=== PATIENT | male | born 1945 | race Caucasian/White ===

== ENCOUNTER 2022-09-08 07:49 | Outpatient (CLI) | payer MEDICARE, SELFPAY | END 2022-09-08 07:50 | disposition home or self-care (01) | PROVIDERS: PCP Physician Assistant Medical; Visit Provider Physician Assistant Medical | DX: Z00.00 Encounter for general adult medical examination without abnormal findings (principal); I10 Essential (primary) hypertension; E78.5 Hyperlipidemia, unspecified; R97.20 Elevated prostate specific antigen [PSA] | CPT/HCPCS: 80053; 80061; 84153 ==

== ENCOUNTER 2022-09-12 07:05 | Outpatient (CLI) | payer MEDICARE, SELFPAY ==
--- NOTE | 2022-09-12 07:15 | CRLHL7_ITS ---
For Patients: As a result of the Century Cures Act, medical imaging exams and procedure reports are released immediately into your electronic medical record. You may view this report before your referring provider. If you have questions, please contact your health care provider. CLINICAL HISTORY: Left testicular swelling TECHNIQUE: Roca scale imaging was performed of the scrotum. In addition color Doppler and spectral Doppler analysis was performed of the testes. FINDINGS: The testes demonstrate normal arterial and venous blood flow on color Doppler and spectral Doppler analysis. The testes have uniform echogenicity with no evidence of a suspicious mass or area of inflammation. The right testis measures 4.8 x 2.6 x 2.9 cm in size and the left testis measures 5 x 2.6 x 2.7 cm. 1.1 centimeter left epididymal cyst the epididymis otherwise appears normal bilaterally. Large left hydrocele. Small right hydrocele. IMPRESSION: 1. No intratesticular mass. Left epididymal cyst. 2. Large left hydrocele. Small right hydrocele. Dictated by Shayy Booker MD @ 09/12/2022 8:41:23 AM (Electronically Signed)
== END 2022-09-12 07:06 | disposition home or self-care (01) ==
PROVIDERS: PCP Physician Assistant Medical; Visit Provider Physician Assistant Medical
DX: N50.89 Other specified disorders of the male genital organs (principal); N43.3 Hydrocele, unspecified
CPT/HCPCS: 76870; 93976

== ENCOUNTER 2022-11-09 07:05 | Outpatient (CLI) | payer MEDICARE, SELFPAY ==
--- NOTE | 2022-11-09 07:15 | MR_ITS ---
[address] [address] Phone:?[phone] Fax:?[phone] Referring Physician Information: Primo Lucas M.D. [address] [id number] [facility] [address] Phone:?[phone] Fax:?[phone] Patient:Steve Hernandez D.O.B:?1945 Sex:?Male Phone:? [facility] MRN:?[id number] Exam Date:?11/09/2022 EXAM: 1.5 PATSY MRI EXAM OF THE PROSTATE WITH AND WITHOUT IV CONTRAST WITH DYNACAD IMAGING CLINICAL INFORMATION: Elevated PSA, 8.42 ng/mL. No prior biopsy. COMPARISON: None. TECHNICAL INFORMATION: Examination was performed on a 1.5 Patsy magnet. High- resolution T1 axial, T2 axial, T2 FSE sagittal and T2 FSE coronal images were obtained through the prostate gland and seminal vesicles. Diffusion images were obtained in the axial plane. 15 mL of Dotarem were injected with dynamic enhanced images of the prostate gland in the axial plane. T1 fat saturation sagittal and coronal images were obtained postinjection. 3-D rendering with interpretation and reporting of MR imaging with postprocessing under concurrent supervision; requiring imaging postprocessing on an independent [employer] workstation. IV Contrast Discarded:?0 mL Dotarem INTERPRETATION: Prostate gland measures 44 x 33 x 31 mm, 25 mL prostate. Transitional and central zones: Stromal hyperplasia without focal suspicious (PI RADS 3 or higher score) transitional zone lesion. Peripheral zones: Lesion 1: Location: Posterior lateral left peripheral zone, mid gland to base level. Description: 17 x 16 x 12 mm, partially circumscribed hypointense T2 lesion with marked hypointense ADC signal, bright DWI signal and dynamic enhancement, axial images 19 through 23. PI-RADS: 4 Pelvis: Prostate capsule, neurovascular bundles and seminal vesicles are unremarkable. No pelvic adenopathy or osseous lesion. CONCLUSION: 1. 17 x 16 x 12 mm PI RADS 4 lesion posterior lateral left peripheral zone, mid gland to base level. PI-RADS Scoring System: Score / Criteria ACR PI-RADS Peripheral Zone T2WI 1 = Uniformly hyperintense signal intensity (normal) 2 = Linear or wedge-shaped hypointensity, or diffuse mild hypointensity, usually indistinct margin 3 = Heterogenous signal intensity or non-circumscribed, rounded, moderate hypointensity. Includes others that do not qualify as 2,4,or 5 4 = Circumscribed, homogeneous moderate hypointense focus/mass confined to prostate and < 1.5 cm in greatest dimension 5 = Same as 4 but >=?1.5 cm in greatest dimension or definite extraprostatic extension/invasive behavior ACR PI-RADS Transition Zone T2WI 1 = Normal appearing TZ (rare) or a round, completely encapsulated nodule (typical nodule) 2 = A mostly encapsulated nodule OR a homogeneous circumscribed nodule without encapsulation. (atypical nodule) OR a homogenous midly hypointense area between nodules 3 = Heterogeneous signal intensity with obscured margins. Includes others that do not qualify as 2,4,or 5 4 = Lenticular or non-circumscribed, homogenous, moderately hypointense, and < 1.5 cm in greatest dimension 5 = Same as 4 but >=1.5 cm in greatest dimension or definite extraprostatic extension/invasive behavior ACR PI-RADS Assessment of DWI Peripheral Zone (PZ) or Transition Zone (TZ) 1 = No abnormality (i.e., normal) on ADC and high b-value DWI 2 = Linear/wedge shaped hypotense on ADC and/or linear wedge shaped hyperintense on high b-value DWI 3 = Focal (discrete and different from the background) hypointense on ADC and/or focal hyperintense on high b-value DWI, may be markedly hypointense on ADC or markedly hyperintense on high b-value DWI, but not both 4 = Focal markedly hypontense on ADC and markedly hyperintense on high b-value DWI; < 1.5 cm in greatest dimension 5 = Same as 4 but >=1.5 cm in greatest dimension or definite extraprostatic extension/invasive behavior ACR PI-RADS Assessment for DCE Negative (-) = No early or contemporaneous enhancement, or; diffuse multifocal enhancement NOT corresponding to a focal finding on T2W and/or DWI or focal enhancement corresponding to a lesion demonstrating features of BPH on T2WI (including features of extruded BPH in the PZ) Positive (+) = Focal, and; earlier than or contemporaneous with enhancement of adjacent normal prostatic tissues, and; corresponds to a suspicious finding on T2WI and/or DWI PI-RADS Assessment Categories: Score 1 = very low; clinically significant cancer is highly unlikely to be present Score 2 = low; clinically significant cancer is unlikely to be present Score 3 = intermediate; the presence of clinically significant cancer is equivocal Score 4 = high; clinically significant cancer is likely to be present Score 5 = very high; clinically significant cancer is highly likely to be present [facility] Electronically signed on 11/09/2022 1:05:00 PM by Joce Whitney M.D.
== END 2022-11-09 07:06 | disposition home or self-care (01) ==
LOC: MRI 07:05
PROVIDERS: PCP Physician Assistant Medical; Visit Provider Urology
DX: R97.20 Elevated prostate specific antigen [PSA] (principal)
CPT/HCPCS: 72197; A9575

== ENCOUNTER 2022-12-05 12:34 | Outpatient (CLI) | payer MEDICARE, SELFPAY | END 2022-12-05 12:35 | disposition home or self-care (01) | PROVIDERS: PCP Physician Assistant Medical; Visit Provider Physician Assistant Medical | DX: I48.91 Unspecified atrial fibrillation (principal) | CPT/HCPCS: 84443 ==

== ENCOUNTER 2022-12-30 10:49 | Outpatient (CLI) | payer MEDICARE, SELFPAY | END 2022-12-30 10:50 | disposition home or self-care (01) | LOC: RAD 10:51 | PROVIDERS: PCP Physician Assistant Medical; Visit Provider Physician Assistant Medical | DX: I48.91 Unspecified atrial fibrillation (principal); I51.7 Cardiomegaly; I35.1 Nonrheumatic aortic (valve) insufficiency; I34.0 Nonrheumatic mitral (valve) insufficiency; I07.1 Rheumatic tricuspid insufficiency | CPT/HCPCS: 93306 ==

== ENCOUNTER 2023-04-17 06:08 | Day surgery (SDC) | payer MEDICARE, SELFPAY ==
[2023-04-17] VITALS (13 sets, daily range): BP systolic 91–129; BP diastolic 64–97; PULSE 54–96; RESP 13–18; TEMP 36.2–36.5; O2SAT 95–97; BMI 29.1
[2023-04-17] MEDS: LACTATED RINGERS 1000 ML 1,000 ML 100 ML IV (06:15)
[2023-04-17] MEDS: SODIUM CHLORIDE 0.9 % (FLUSH) 10 ML SYRINGE IVF (06:57)
--- NOTE | 2023-04-17 07:22 | SUR.PREOP ---
noting bright red rash on left side of abdomen prior to shaving also in his abdomen crease a moist red area
--- NOTE | 2023-04-17 07:28 | W.PM.H&PU ---
History & Physical Update History & Physical Update H&P Reviewed and patient assessed: No changes noted
--- NOTE | 2023-04-17 07:29 | P.GSOP_ITS ---
Operative Note Pre-op diagnosis: 1. Left symptomatic hydrocele. 2. Symptomatic left inguinal hernia. Post-op diagnosis: 1. Moderately sized left hydrocele. 2. Small indirect Left inguinal hernia and weak inguinal floor. Type of Procedure: 1. Open left inguinal hernia repair with mesh. 2. Open Left hydrocelectomy. Indications: 78-year-old male was seen in clinic for evaluation of a left hydrocele. Patient states that for the past several months prior to his presentation he noticed swelling on the left side of his testicle. He noticed that the size of his left hemiscrotum would fluctuate and get smaller and larger at times. He initially denied pain in the left groin but after his clinic evaluation started to experience increased pain in the groin. This was worse with strenuous activity. Patient had a scrotal ultrasound in August of 2022 that showed normal bilateral testes. There was 1 cm left epididymal cyst. There was also a large left hydrocele. On clinical exam patient had a moderate amount of left hemiscrotal swelling consistent with hydrocele. I was not able to palpate the testis on the left side. With the patient standing up and doing Valsalva there was a small hernia palpated over the medial inguinal canal. Given patient's clinical history and worsening left groin pain as well as his clinical exam, a left hydrocelectomy and inguinal hernia repair with mesh was recommended. The procedure was discussed in detail. The risks associated procedure including infection, bleeding, injury to inguinal nerves, persistent drainage from his scrotum, and possible need for additional procedures were all discussed with the patient, and he agreed to proceed. Procedure Description: After discussing the risks and benefits of the procedure, the patient signed informed consent.? The operative site was marked and the patient was brought to the operating room and placed on the operating table in supine position.? Care was taken to pad the patient's pressure points.?? The patient was then intubated by anesthesia.?? The operative site was then prepped and draped in the usual sterile fashion.? A time-out was then performed. Surgical site was prepped and draped in sterile fashion. Site of the incision was marked with a marking pen and local anesthetic was injected. An oblique incision was made just above and medial to the left inguinal ligament. Subcutaneous tissue was dissected to external obliques. Superficial subcutaneous vascular branches were clamped, divided and tied with 3-0 Vicryl ties. Small incision was made through the external oblique aponeurosis with scalpel. I then used Metzenbaum scissors to dissect under external obliques and extend my incision. Mosquito clamps were placed on the edges of external oblique exposing the inguinal floor. The left Ilioinguinal nerve was identified and was going through the plain of dissection. The nerve was divided proximally and distally a nd a 3 cm segment of it was excised. This was not sent to pathology. I then identified the spermatic cord and the hernia sac. I bluntly dissected subcutaneous tissues in order to place Becca drain around the cord structures. Cremasteric fibers were peeled off and dissected off the hernia sac and cord structures. the tissues in the left hemiscrotum were then dissected bluntly and with cautery around the left testicle and hydrocele. The left hydrocele was then delivered out of the incision and examined closely. The hydrocele was entered with Metzenbaum scissors and straw-colored clear fluid was suctioned out. The testicle was identified and epididymis was noted to have a small cyst. The hydrocele sac was then excised with cautery circumferentially. The layer of the sac adherent to the testicle was left intact and cautery was used to score the surface of the sac. Hemostasis was achieved with cautery. The testicle was then placed into the hemiscrotum. I then proceeded with dissecting the hernia sac from the spermatic cord. The hernia sac was identified and grasped with Kendra clamps. There was a small indirect inguinal hernia with no intra-abdominal structures incarcerated through this hernia defect. The hernia sac was dissected off the spermatic cord with cautery and bluntly. The left inguinal floor was weak. The indirect hernia sac was incised and examined from the inside. No intraabdominal organs were incarcerated in the hernia sac. A stitch using 2-0 Vicryl was placed near the base of the hernia sac through the sac and the hernia sac tied off. Hernia sac was then excised and not sent to pathology. This was then pushed into preperitoneal space through the internal ring. Surgical field was examined for bleeding and hemostasis was achieved with cautery and Vicryl ties. A Bard mesh onlay was also used for hernia repair. The mesh onlay was sutured in place with interrupted 0-0 Neurolon sutures to the conjoint tendon medially and shelving edge laterally, pubic tubercle inferiorly. The mesh was incised in the center to allow space for the spermatic cord to go through the center of the mesh. Simple interrupted sutures were placed using 0-0 Neurolon at the base of internal inguinal ring making it only large enough to fit a tip of one finger through. Spermatic cord was placed back into scrotum. [place] drain was removed. External oblique aponeurosis was closed with a running 3-0 Vicryl. Local anesthetic was injected into subcutaneous tissues. Celena's fascia and subcutaneous tissue was re-approximated with interrupted Vicryl stitches. Skin incision was closed with 4-0 Monocryl subcuticular stitch. Steri strips and sterile dressing were applied over incision. A jockstrap was placed over the patient's scrotum and gauze was placed for pressure on the left hemiscrotum. All counts were correct at the end of the case. Patient tolerated this procedure well and was transferred to PACU in stable condition. Findings: Small indirect inguinal hernia and weak inguinal floor. Moderately sized left hydrocele. Anesthesia: GETA Surgeon: Guera Hagan MD Estimated blood loss (mL): 5 Condition: stable Disposition: PACU Date of procedure: 04/17/23
[2023-04-17] MEDS: CEFAZOLIN 2 GM INJ IVP (07:40)
[2023-04-17] MEDS: BUPIVACAINE 0.25% 30 ML 10 ML INJECTION (07:50)
--- NOTE | 2023-04-17 09:32 | W.ANESCHARGE ---
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
[2023-04-17] MEDS: HYDROCODONE-ACETAMIN 5-325 MG 1 TAB PO (10:18)
--- NOTE | 2023-04-17 10:30 | W.ANESCHARGE ---
Anesthesia Charges Start Date/Time Anesthesia Start Date: 04/17/23 Anesthesia Start Time: 07:29 Stop Date/Time Anesthesia Stop Date: 04/17/23 Anesthesia Stop Time: 09:31 Summary Extremes of Age - Over 70 or under 1: MDA
== END 2023-04-17 11:25 | disposition home or self-care (01) ==
PROVIDERS: PCP Physician Assistant Medical; Visit Provider Surgery
PROC: (CPT 49505; principal; 2023-04-17 07:30)
PROC: (CPT 49505; 2023-04-17 07:30)
DX: K40.90 Unilateral inguinal hernia, without obstruction or gangrene, not specified as recurrent (principal); N43.2 Other hydrocele; N50.3 Cyst of epididymis
CPT/HCPCS: 49505; 55040; 00830; 99100; A9270; C1781; J0330; J0665; J0690; J1100; J2371; J2405; J2704; J2710; J3010; J7120

== ENCOUNTER 2023-05-25 07:02 | Outpatient (CLI) | payer MEDICARE, SELFPAY ==
--- NOTE | 2023-05-25 07:15 | CRLHL7_ITS ---
For Patients: As a result of the Century Cures Act, medical imaging exams and procedure reports are released immediately into your electronic medical record. You may view this report before your referring provider. If you have questions, please contact your health care provider. INDICATION: LEFT TESTICULAR SWELLING, FOLLOW UP KNOWN HYDROCELE COMPARISON: 09/12/2022 TECHNIQUE: Roca scale imaging was performed of the scrotum. In addition color Doppler and spectral Doppler analysis was performed of the testes. FINDINGS: Right testicle measures 4.6 x 2.1 x 2.7 cm. Left testicle measures 3.8 x 2.6 x 3.1 cm. Left epididymal head cyst measures 1.5 x 0.9 x 1.2 cm. Normal right epididymis. No intratesticular mass. No torsion. There is a large echogenic collection of fluid within the left hemiscrotum measuring at least 8 cm. IMPRESSION: Large left hydrocele, now containing echogenic material likely representing blood products. Drainage recommended. Stable left epididymal head cyst. Dictated by Jayden Zavala MD @ 05/25/2023 11:30:58 AM (Electronically Signed)
== END 2023-05-25 07:03 | disposition home or self-care (01) ==
LOC: US 07:05
PROVIDERS: PCP Physician Assistant Medical; Visit Provider Urology
DX: N50.89 Other specified disorders of the male genital organs (principal); Z98.890 Other specified postprocedural states; N43.2 Other hydrocele; L72.0 Epidermal cyst
CPT/HCPCS: 76870; 93976

== ENCOUNTER 2023-06-20 06:25 | Outpatient (CLI) | payer MEDICARE, SELFPAY ==
--- OUTSIDE RECORDS SUMMARY | 2023-06-20 06:27 | XMS_ITS | Continuity of Care Document ---
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 Plan of Treatment Reminders Order Date Submit Date Provider Last Modified By Organization Details Last Modified Time Details Appointments COREAS CLASS 2023 06:00P M SIMS_Provide r Not available Not available Not available HOS[facility] 180 2023 11:15A M Primo Lucas MD Not available Not available Not available HOSPIT AL 180 2023 11:15A M Louie Butt MD Not available Not available Not available LAB 30 VOIDIN G TRIAL/ FILL&P ULL 2023 08:30A M CLINICAL_SCH EDULE Not available Not available Not available POST OP 20 2023 11:00A M Mary Osborne PA-C Not available Not available Not available VED_CL ASS_NO N_BILL ABLE 2023 06:00P M VED_EDUCATIO N Not available Not available Not available ESTABL ISHED 20 2023 08:40A M LIO López Not available Not available Not available LAB BLOOD DRAW 2023 09:50A M [facility] Not available Not available Not available ESTABL ISHED 10 2023 08:40A M Primo Lucas MD Not available Not available Not available Lab None record ed. Referral None record ed. Procedures None record ed. Surgeries prosta tectom y with bilate ral pelvic lymph node dissec tion, robot assist ed laparo scopic (SURG) 2022 023 mallram Not available 05/17/2023 09:36:00 Imaging None record ed. Medication Orders None record ed. Patient TargetsNo targets recorded. Patient InstructionsNo instructions recorded. Reason for Referral None Reported. Results Created Date Observation Date Name Description Value Unit Range Abnormal Flag LastModifiedBy Organization Detail LastModifiedTime 04/27/20 23 04/26/2023 US, prost ate No observ ation record ed. [email or web address] Not Available 05/09/2023 16:48:14 05/25/19 24 05/25/2023 US, duple x, scrot um, compl ete No observ ation record ed. [facility] [address] [place], [address], 05/26/2023 09:44:19 Result Notes None recorded. Problems Name Status Onset Date Resolution Date Notes Provider Name and Address Organization Details Recorded Time Essential hypertension Active 02/08/20 23 Camilla major [facility] 02/07/2023 17:06:43 Prostate specific antigen above reference range Active 04/26/20 23 Camilla major [facility] 04/26/2023 13:05:55 Problem Notes None recorded. Procedures Surgical History Date Name Laterality Status Provider Name and Address Organization Details Recorded Time 3 Prostate Biopsy Procedure completed Primo Lucas MD [address] [place] [address],[address] [place] [address], [id number], [facility] 04/26/2023 13:55:17 3 URONAV completed Primo Lucas MD [address] [place] [address],[address], [place], [address], [facility] 04/26/2023 13:55:10 3 Rocephin/Ceftr iaxone completed Ria major [facility] 04/26/2023 12:49:06 3 Blood Draw/PHOTO TECHNOLOGIST/PSA RESULTS completed Ria major [facility] 04/26/2023 12:49:09 3 Prostate Biopsy Procedure cancelled Camilla major [facility] 02/07/2023 17:06:20 3 URONAV cancelled Camilla major [facility] 02/07/2023 17:06:20 3 Rocephin/Ceftr iaxone cancelled Dennis major [facility] 02/08/2023 13:41:54 3 Blood Draw/PHOTO TECHNOLOGIST/PSA RESULTS cancelled Dennis major [facility] 02/08/2023 13:41:38 Imaging Results None recorded. Procedure Notes None recorded. Medical Equipment None Reported. Allergies No known drug allergies Medications Name Sig Start Date Stop Date Status Note LastModified by Organization Details LastModified Time metoprolol succinate ER 50 mg tablet,exte nded release 24 hr active Not Available Not Available Not Available hydrocodone 5 mg-acetamin ophen 325 mg tablet active Not Available Not Available No t Available amlodipine 5 mg tablet active Not Available Not Available Not Available ceftriaxone 1 gram solution for injection Take 1 g by injection route. 05/09 completed Not Available Not Available Not Available amlodipine 10 mg tablet 05/09 completed Not Available Not Available Not Available hydrochloro thiazide 25 mg tablet active Not Available Not Available No t Available metoprolol succinate ER 25 mg tablet,exte nded release 24 hr 05/09 completed Not Available Not Available Not Available levofloxaci n 500 mg tablet Take 1 tablet(s) EVERY 24 HOURS by oral route begin the day before prostate biopsy. take one pill the day before biopsy, one pill prior to the biopsy on the day of and one pill the day after the biopsy 05/09 completed Not Available Not Available Not Available losartan 100 mg tablet active Not Available Not Available Not Available Xarelto 20 mg tablet active Not Available Not Available No t Available QuickVue At-Home COVID-19 Test kit TEST DIRECTED TODAY 10/28 completed Not Available Not Available Not Available Vitals Date Recorded Body height Body mass index (BMI) Body weight Provider Name and Address Organization Details Last Updated DateTime 05/09/2023 182.88 cm 28.5 kg/m2 28396.4 g Camilla major [facility] 05/09/2023 16:25:50 Social History Question Answer Notes LastModified by Organizat ion Details LastModified Time Tobacco Smoking Status Never Smoker Camilla major [facility] 10/28/2022 12:21:11 What Is Your Level Of Alcohol Consumption? Moderate [email or web address] Information not available 10/28/2022 What Is Your Level Of Caffeine Consumption? Occasional [email or web address] Information not available 10/28/2022 What Was The Date Of Your Most Recent Tobacco Screening? 05/09/2023 [email or web address] Information not available 05/09/2023 Have You Ever Been Counseled For Unhealthy Alcohol Use? No [email or web address] Information not available 02/07/2023 Do You Use Any Illicit Or Recreational Drugs? No [email or web address] Information not available 10/28/2022 Has Tobacco Cessation Counseling Been Provided? No [email or web address] Information not available 10/28/2022 Do You Or Have You Ever Used Any Other Forms Of Tobacco Or Nicotine? No [email or web address] Information not available 10/28/2022 How Many Days In The Past Year Have You Consumed 5 Or More Drinks? 0 Information no t available 02/07/2023 Sex: Male Functional Status None recorded. Mental Status None recorded. Family History Nothing Reported. Medical History Condition Response Diabetes N Sexually Transmitted Infection N Other N Bleeding Disorder N High Blood Pressure Y Kidney Stones N Cancer N Depression N Lung Disease N High Cholesterol N GERD/Acid Reflux N Heart Disease N Immunizations Vaccine Type Date Status Provider Name and Address Organization Details Recorded Time influenza, high-dose, quadrivalent 04/09/2021 filemon major [facility] 10/28/2022 12:17:30 Influenza vaccine, quadrivalent, adjuvanted 04/05/2022 filemon major [facility] 10/28/2022 12:17:30 COVID-19, mRNA, LNP-S, PF, 30 mcg/0.3 mL dose 07/04/2020 filemon major [facility] 10/28/2022 12:17:30 COVID-19, mRNA, LNP-S, PF, 30 mcg/0.3 mL dose 07/25/2020 filemon major [facility] 10/28/2022 12:17:30 COVID-19, mRNA, LNP-S, PF, 30 mcg/0.3 mL dose 04/22/2021 completed Camilla major, [facility] 10/28/2022 12:17:30 COVID-19, mRNA, LNP-S, bivalent, PF, 30 mcg/0.3 mL dose 04/05/2022 [facility] 12:17:30 pneumococcal polysaccharide PPV23 06/09/2010 completed Camilla major, [facility] 10/28/2022 12:17:30 Tdap 05/29/2009 [facility]2022 12:17:30 Pneumococcal conjugate PCV 13 04/03/2015 [facility]20[facility] 12:17:30 zoster live 01/30/2013 [facility]/28/2022 12:17:30 Influenza, high dose seasonal 06/15/2018 [facility]2022 12:17:30 Influenza, high dose seasonal 02/17/2016 [facility]/2022 12:17:30 Influenza, high dose seasonal 03/03/2017 [facility]2022 12:17:30 Influenza, high dose seasonal 03/23/2020 [facility]22 12:17:30 Influenza, high dose seasonal 04/12/2019 [facility] 12:17:30 Influenza, seasonal, injectable, preservative free 06/09/2010 [facility] 12:17:30 Influenza, seasonal, injectable, preservative free 01/30/2013 [facility]2022 12:17:31 Influenza, seasonal, injectable, preservative free 02/09/2011 completed Camilla major [facility] 10/28/2022 12:17:31 Influenza, seasonal, injectable, preservative free 04/30/2014 completed Camilla Kayleyfrantz major [facility] 10/28/2022 12:17:31 Td (adult), 2 Lf tetanus toxoid, preservative free, adsorbed 10/14/2021 completed Camilla major [facility] 10/28/2022 12:17:31 influenza, injectable, quadrivalent, preservative free 03/13/2015 completed Camilla major [facility] 10/28/2022 12:17:31 Past Encounters Encounter ID Performer Location Encounter Start Date Encounter Closed Date Diagnosis/Indication [id number] Ria Arrieta [address] [address] 04/26/2023 12:46:11 04/26/2023 13:19:00 Prostate specific antigen above reference range [id number] Primo Lucas MD [address] [address] 04/26/2023 12:47:33 04/26/2023 14:15:21 Prostate specific antigen above reference range [id number] Primo Lucas MD [address] [address] 05/09/2023 16:10:34 05/10/2023 08:21:24 Carcinoma of prostate Health Concerns Section Related Observation LastModified by Organization Detai ls LastModified Time None Recorded Concern Status LastModified by Organization Details LastModified Time None Recorded Payers Encounter Date Sequence Insurance Name Policy Number Policy Verdugo Covered Member ID Verdugo Member ID Guarantor Name 05/09/2023 1 [employer] - DOS ON OR AFTER 19 (MEDICARE REPLACEMENT/ ADVANTAGE - PPO) [id number] 1 Benedict Hernandez [id number] Benedict Hernandez Notes Date Note Type Note Provider Name and Address Organization Details Recorded Time 05/09/2023 text/html HPI Notes: New diagnosis prostate cancer grade group 3 disease in the left side of the prostate with MRI showing confined disease and PI-RADS 3 positive grade group 4 on biopsy. PSA of 8. Primo Lucas MD [address] [place] [address], [place], [address], [facility] 05/10/2023 06:28:24
--- OUTSIDE RECORDS SUMMARY | 2023-06-20 06:27 | XMS_ITS | Data Portability ---
Author Name Unknown Address [address] [place] [address] Phone [phone] Organization [facility], [facility] Address [address] [place] [address] Care Team Providers Care Teaching Artist Name Role Phone BENJAMÍN SHERMAN Primary Care Provider Assessment Encounter Date Assessment Date Assessment LastModified by Organization Details LastModified Time 04/26/2023 04/26/2023 The patient tolerated the procedure well. We discussed that he can expect to have blood coating the stool for a few days, pink or reddish urine which may be normal, and rust colored ejaculate for up to one month. We discussed important warning signs such as fevers >100.4 which may be indicative of sepsis, worsening blood in the urine with clots and urinary retention, or worsening blood per rectum. In each other these circumstances he should contact the office immediately or go to the Emergency Department. He will be contacted with the results of his biopsy. If he does not receive these results within 5-7 business days he should contact our office. [email or web address] Not available 04/26/2023 12:55:25 Plan of Treatment Reminders Order Date Submit [...] available LAB BLOOD DRAW 2023 09:50A M [facility] Not available Not available Not available ESTABL ISHED 10 2023 08:40A M Primo Lucas MD Not available Not available Not available Lab biopsy , prosta te 2022 023 [facility], [address], [address], [place], [address], 04/29/2023 16:01:06 Referral None record ed. Procedures None record ed. Surgeries prosta tectom y with bilate ral pelvic lymph node dissec tion, robot assist ed laparo scopic (SURG) 2022 023 mallram Not available 05/17/2023 09:36:00 Imaging MRI, prosta te, w/wo contra st - elevat ed psa, prosta te mri with dynbac ad. 2022 023 [facility], [address] [place], [address], 11/09/2022 14:05:35 Medication Orders ceftri axone 1 gram soluti on for inject ion 2022 023 [email or web address] [facility] [place], [address], 05/09/2023 16:25:57 Patient TargetsNo targets recorded. Patient InstructionsNo instructions recorded. Reason for Referral None Reported. Results Created Date Observation Date Name Description Value Unit Range Abnormal Flag LastModifiedBy Organization Detail LastModifiedTime 11/10/19 23 11/09/2022 MRI, prost ate, w/wo contr ast No observ ation record ed. [email or web address] Primo De Los Santos MD [address] [place], [address], 11/09/2022 18:37:28 04/27/20 23 04/26/2023 US, prost ate No observ ation record ed. [email or web address] Not Available 05/09/2023 16:48:14 05/25/19 24 05/25/2023 US, duple x, scrot um, compl ete No observ ation record ed. [facility] [address] [place], [address], 05/26/2023 09:44:19 Result Notes None recorded. Problems Name Status Onset Date Resolution Date Notes Provider Name and Address Organization Details Recorded Time Essential hypertension Active 02/08/20 23 Camilla major [facility] 02/07/2023 17:06:43 Prostate specific antigen above reference range Active 04/26/20 23 Camilla major [facility] 04/26/2023 13:05:55 Problem Notes None recorded. Procedures Surgical History Date Name Laterality Status Provider Name and Address Organization Details Recorded Time 3 Prostate Biopsy Procedure completed Primo Lucas MD [address] [place] [address],[address], [address], [facility] 04/26/2023 13:55:17 3 URONAV completed Primo Lucas MD [address] [place] [address],[address], [address], [facility] 04/26/2023 13:55:10 3 Rocephin/Ceftr iaxone completed Ria major [facility] 04/26/2023 12:49:06 3 Blood Draw/C.O.D. CLERK/PSA RESULTS completed Ria major [facility] 04/26/2023 12:49:09 3 Prostate Biopsy Procedure cancelled Camilla major [facility] 02/07/2023 17:06:20 3 URONAV cancelled Camilla major [facility] 02/07/2023 17:06:20 3 Rocephin/Ceftr iaxone cancelled Dennis major [facility] 02/08/2023 13:41:54 3 Blood Draw/C.O.D. CLERK/PSA RESULTS cancelled Dennis major [facility] 02/08/2023 13:41:38 Imaging Results Imaging Date Name Status LastModified by Organiz ation Details LastModified Time 11/09/2022 MRI, prostate, w/wo contrast completed [email or web address] Primo De Los Santos MD [address] [place], [address], 11/09/2022 18:37:28 04/26/2023 US, prostate completed [email or web address] Information not available 05/09/2023 16:48:14 05/25/2023 US, duplex, scrotum, complete completed [facility] [address] [place], [address], 05/26/2023 09:44:19 Procedure Notes None recorded. Medical Equipment None [...] one pill the day after the biopsy 12/19 /2023 completed Not Available Not Available Not Available [...] and Address Organization Details Last Updated DateTime 10/28/2022 182.88 cm 28.5 kg/m2 54912.4 g Camilla major [facility] 10/28/2022 12:17:26 Date Recorded Body height Body mass index (BMI) Body weight Provider Name and Address Organization Details Last Updated DateTime 04/26/2023 182.88 cm 28.5 kg/m2 27753.4 g Camilla major [facility] 04/26/2023 13:05:44 Date Recorded Body height Body mass index (BMI) Body weight Provider Name and Address Organization Details Last Updated DateTime 05/09/2023 182.88 cm 28.5 kg/m2 02131.4 g Camilla major [facility] 05/09/2023 16:25:50 Social History Question Answer Notes LastModified by Organizat ion Details LastModified Time Tobacco Smoking Status Never Smoker Camilla major [facility] 10/28/2022 12:21:11 What Is Your Level Of Alcohol Consumption? Moderate [email or web address] Information not available 10/28/2022 What Is Your Level Of Caffeine Consumption? Occasional [email or web address] Information not available 10/28/2022 What Was The Date Of Your Most Recent Tobacco Screening? 05/09/2023 [email or web address] Information not available 05/09/2023 Have You Ever Been Counseled For Unhealthy Alcohol Use? No Information not available 02/07/2023 Do You Use Any Illicit Or Recreational Drugs? No [email or web address] Information not available 10/28/2022 Has Tobacco Cessation Counseling Been Provided? No [email or web address] Information not available 10/28/2022 Do You Or Have You Ever Used Any Other Forms Of Tobacco Or Nicotine? No [email or web address] Information not available 10/28/2022 How Many Days In The Past Year Have You Consumed 5 Or More Drinks? 0 [email or web address] Information no t available 02/07/2023 Sex: Male Functional Status None recorded. Mental Status None recorded. Family History Nothing Reported. Medical History Condition Response Other N High Blood Pressure Y Kidney Stones N Lung Disease N Depression N GERD/Acid Reflux N Diabetes N Sexually Transmitted Infection N Bleeding Disorder N Cancer N High Cholesterol N Heart Disease N Immunizations Vaccine Type Date Status Provider Name and Address Organization Details Recorded Time influenza, high-dose, quadrivalent 04/09/2021 completed Camilla major [facility] 10/28/2022 12:17:30 Influenza vaccine, quadrivalent, adjuvanted 04/05/2022 completed Camilla major [facility] 10/28/2022 12:17:30 COVID-19, mRNA, LNP-S, PF, 30 mcg/0.3 mL dose 07/04/2020 completed Camilla major [facility] 10/28/2022 12:17:30 COVID-19, mRNA, LNP-S, PF, 30 mcg/0.3 mL dose 07/25/2020 completed Camilla major [facility] 10/28/2022 12:17:30 COVID-19, mRNA, LNP-S, PF, 30 mcg/0.3 mL dose 04/22/2021 completed Camilla major [facility] 10/28/2022 12:17:30 COVID-19, mRNA, LNP-S, bivalent, PF, 30 mcg/0.3 mL dose 04/05/2022 completed Camilla major [facility] 10/28/2022 12:17:30 pneumococcal polysaccharide PPV23 06/09/2010 completed Camilla major [facility] 10/28/2022 12:17:30 Tdap 05/29/2009 completed Camilla major [facility] 10/28/2022 12:17:30 Pneumococcal conjugate PCV 13 04/03/2015 completed Camilla major [facility] 10/28/2022 12:17:30 zoster live 01/30/2013 completed Camilla major [facility] 10/28/2022 12:17:30 Influenza, high dose seasonal 06/15/2018 completed Camilla major [facility] 10/28/2022 12:17:30 Influenza, high dose seasonal 02/17/2016 completed Camilla major [facility] 10/28/2022 12:17:30 Influenza, high dose seasonal [facility]/03/2017 [facility] 12:17:30 Influenza, high dose seasonal 03/23/2020 [facility] 12:17:30 Influenza, high dose seasonal 04/12/2019 [facility] 12:17:30 Influenza, seasonal, injectable, preservative free 06/09/2010 [facility] 12:17:30 Influenza, seasonal, injectable, preservative free 01/30/2013 [facility]2022 12:17:31 Influenza, seasonal, injectable, preservative free 02/09/2011 [facility] 12:17:31 Influenza, seasonal, injectable, preservative free 04/30/2014 [facility] 12:17:31 Td (adult), 2 Lf tetanus toxoid, preservative free, adsorbed 10/14/2021 [facility] 12:17:31 influenza, injectable, quadrivalent, preservative free 03/13/2015 [facility] 12:17:31 Past Encounters Encounter ID Performer Location Encounter Start Date Encounter Closed Date Diagnosis/Indication [id number] MD Sol [facility] [address] [place] [id number] 10/28/2022 11:32:15 10/31/2022 08:17:55 Hydrocele of testis Prostate specific antigen above reference range Left inguinal hernia [id number] [facility] [address] [place] [phone] 04/26/2023 12:46:11 04/26/2023 13:19:00 Prostate specific antigen above reference range [id number] Primo Lucas MD [facility] [address] [place] [address],[address] [address] 04/26/2023 12:47:33 04/26/2023 14:15:21 Prostate specific antigen above reference range [id number] Primo Lucas MD [facility] [address] [place] [address],[address] [address] 05/09/2023 16:10:34 05/10/2023 08:21:24 Carcinoma of prostate Health Concerns Section Related Observation LastModified by Organization Detai ls LastModified Time None Recorded Concern Status LastModified by Organization Details LastModified Time None Recorded Advance Directives Directive None Recorded Payers Encounter Date Sequence Insurance Name Policy Number Policy Verdugo Covered Member ID Verdugo Member ID Guarantor Name 05/09/2023 1 [employer] - DOS ON OR AFTER 19 (MEDICARE REPLACEMENT/A DVANTAGE - PPO) [id number] 1 Benedict Page Betzold [id number] Benedict Page Betzold 04/26/2023 1 [employer] - DOS ON OR AFTER 19 (MEDICARE REPLACEMENT/A DVANTAGE - PPO) [id number] Benedict Page Betzold [id number] Benedict Page Betzold 04/26/2023 1 [employer] - DOS ON OR AFTER 19 (MEDICARE REPLACEMENT/A DVANTAGE - PPO) [id number] 1 Benedict Page Betzold [id number] Benedict Page Betzold 10/28/2022 1 [employer] - INDIVIDUAL AND FAMILY (HMO) [id number] 1 Benedict Page Betzold [id number] Benedict Page Betzold Notes Date Note Type Note Provider Name and Address Organization Details Recorded Time 10/28/2022 text/html HPI Notes: 77-year-old gentleman who comes to the office today for rising PSA now up to 8. Prior PSA testings were 5 and less than 3 and has increased over the last several years. He reports no major voiding complaints or pain. No history of bleeding or infection. Also reports a long history of left testicular hydrocele. Not bothersome. Has not grown or changed in size. Primo Lucas MD [address] [place] [address],[address], [address], [facility] 10/29/2022 10:27:29 04/26/2023 text/html HPI Notes: returns to clinic f/u pirads 4 lesion prostate elevated psa 8 Primo Lucas MD [address] [facility] [address], [place], [address], [facility] 04/26/2023 13:55:36 05/09/2023 text/html HPI Notes: New diagnosis prostate cancer grade group 3 disease in the left side of the prostate with MRI showing confined disease and PI-RADS 3 positive grade group 4 on biopsy. PSA of 8. Primo Lucas MD [address] [facility] [address], [place], [address], [facility] 05/10/2023 06:28:24
--- OUTSIDE RECORDS SUMMARY | 2023-06-20 06:27 | XMS_ITS | Continuity of Care Document ---
Author Name Unknown Address [address] [place] [id number] Phone [phone] Organization [facility], [facility] Address [address] [place] [address] Care Team Providers Care [place]id[place] Worker Name Role Phone BENJAMÍN SHERMAN Primary Care Provider [phone] Assessment Encounter Date Assessment Date Assessment LastModified [...] business days he should contact our office. [email or web address] Not available 04/26/2023 12:55:25 Plan of Treatment [...] LAB 30 VOIDIN G TRIAL/ FILL&P ULL 02/26/ 2024 08:30A M CLINICAL_SCH EDULE Not available Not available Not available POST OP 20 2023 11:00A M Mary Osborne PA-C Not available Not available Not available VED_CL ASS_NO N_BILL ABLE 2023 06:00P M VED_EDUCATIO N Not available Not available Not available ESTABL ISHED 20 2023 08:40A M LIO López Not available Not available Not available LAB BLOOD DRAW 2023 09:50A M LAB-GRASSY BUTTE Not available Not available Not available ESTABL ISHED 10 2023 08:40A M Primo Lucas MD Not available Not available Not available Lab biopsy , prosta te 2022 023 [facility] Urology - Section Lab, [address] [facility], [place] [address], [place], [address], 04/29/2023 16:01:06 Referral None record ed. Procedures None record ed. Surgeries None record ed. Imaging None record ed. Medication Orders None record ed. Patient TargetsNo targets recorded. Patient InstructionsNo instructions recorded. Reason for Referral None Reported. Results Created Date Observation Date Name Description Value Unit Range Abnormal Flag LastModifiedBy Organization Detail LastModifiedTime 04/27/20 23 04/26/2023 US, prost ate No observ ation record ed. [email or web address] Not Available 05/09/2023 16:48:14 05/25/19 24 05/25/2023 US, duple x, scrot um, compl ete No observ ation record ed. [facility]iology [address] [place], [address], 05/26/2023 09:44:19 Result Notes None recorded. Problems Name Status Onset Date Resolution Date Notes Provider Name and Address Organization Details Recorded Time Essential hypertension Active 02/08/20 23 Camilla major [facility] 02/07/2023 17:06:43 Prostate specific antigen above reference range Active 04/26/20 23 Camilla major [facility] 04/26/2023 13:05:55 Problem Notes None recorded. Procedures Surgical History Date Name Laterality Status Provider Name and Address Organization Details Recorded Time 3 Prostate Biopsy Procedure completed Primo Lucas MD [address] [facility],[address], [place], [address], [facility] 04/26/2023 13:55:17 3 URONAV completed Primo Lucas MD [address] [facility],[address], [place], [address], [facility] 04/26/2023 13:55:10 3 Rocephin/Ceftr iaxone completed Ria Arrietakay major [facility] 04/26/2023 12:49:06 3 Blood Draw/CANDY PACKER/PSA RESULTS [facility] 04/26/2023 12:49:09 3 Prostate Biopsy Procedure cancelled Camillaimelda major [facility] 02/07/2023 17:06:20 3 URONAV cancelled Camillaimelda major [facility] 02/07/2023 17:06:20 3 Rocephin/Ceftr iaxone cancelled Dennis Lund [facility] 02/08/2023 13:41:54 3 Blood Draw/CANDY PACKER/PSA RESULTS cancelled Dennis Lund [facility] 02/08/2023 13:41:38 Imaging Results None recorded. [...] Updated DateTime 04/26/2023 182.88 cm 28.5 kg/m2 15620.4 g Camilla major [facility] 04/26/2023 13:05:44 Social History Question Answer Notes LastModified by Organizat ion Details LastModified Time Tobacco Smoking Status Never Smoker Camilla major [facility] 10/28/2022 12:21:11 What Is Your Level Of Alcohol Consumption? Moderate [email or web address] Information not available 10/28/2022 What Is Your Level Of Caffeine Consumption? Occasional [email or web address] Information not available 10/28/2022 What Was The Date Of Your Most Recent Tobacco Screening? 05/09/2023 Information not available 05/09/2023 Have You Ever Been Counseled For Unhealthy Alcohol Use? No [email or web address] Information not available 02/07/2023 Do You Use Any Illicit Or Recreational Drugs? No [email or web address] Information not available 10/28/2022 Has Tobacco Cessation Counseling Been Provided? No Information not available 10/28/2022 Do You Or Have You Ever Used Any Other Forms Of Tobacco Or Nicotine? No [email or web address] Information not available 10/28/2022 How Many Days In The Past Year Have You Consumed 5 Or More Drinks? 0 [email or web address] Information no t available 02/07/2023 Sex: Male Functional Status None recorded. Mental Status None recorded. Family History Nothing Reported. Medical History Condition Response Diabetes N Sexually Transmitted Infection N Bleeding Disorder N Other N High Blood Pressure Y Kidney Stones N Cancer N Depression N Lung Disease N High Cholesterol N GERD/Acid Reflux N Heart Disease N Immunizations Vaccine Type Date Status Provider Name and Address Organization Details Recorded Time influenza, high-dose, quadrivalent 04/09/2021 completed Camilla major [facility] 10/28/2022 12:17:30 Influenza vaccine, quadrivalent, adjuvanted 04/05/2022 [facility]/28[facility]2022 12:17:30 COVID-19, mRNA, LNP-S, PF, 30 mcg/0.3 mL dose 07/04/2020 completed Camilla major [facility] 10/28/2022 12:17:30 COVID-19, mRNA, LNP-S, PF, 30 mcg/0.3 mL dose 07/25/2020 completed Camilla major [facility] 10/28/2022 12:17:30 COVID-19, mRNA, LNP-S, PF, 30 mcg/0.3 mL dose 04/22/2021 completed Camilla major [facility] 10/28/2022 12:17:30 COVID-19, mRNA, LNP-S, bivalent, PF, 30 mcg/0.3 mL dose 04/05/2022 completed Camilla major [facility] 10/28/2022 12:17:30 pneumococcal polysaccharide PPV23 06/09/2010 [facility] 10/28/2022 12:17:30 Tdap 05/29/2009 [facility] 10/28/2022 12:17:30 Pneumococcal conjugate PCV 13 04/03/2015 [facility] 10/28/2022 12:17:30 zoster live 01/30/2013 [facility] 10/28/2022 12:17:30 Influenza, high dose seasonal 06/15/2018 [facility] 10/28/2022 12:17:30 Influenza, high dose seasonal 02/17/2016 [facility] 10/28/2022 12:17:30 Influenza, high dose seasonal 03/03/2017 completed Camilla major [facility] 10/28/2022 12:17:30 Influenza, high dose seasonal 03/23/2020 [facility]/28/2022 12:17:30 Influenza, high dose seasonal 04/12/2019 [facility]/28/2022 12:17:30 Influenza, seasonal, injectable, preservative free 06/09/2010 [facility] 10/28/2022 12:17:30 Influenza, seasonal, injectable, preservative free 01/30/2013 completed Camilla major [facility] 10/28/2022 12:17:31 Influenza, seasonal, injectable, preservative free 02/09/2011 completed Camilla major [facility] 10/28/2022 12:17:31 Influenza, seasonal, injectable, preservative free 04/30/2014 completed Camilla major [facility] 10/28/2022 12:17:31 Td (adult), 2 Lf tetanus toxoid, preservative free, adsorbed 10/14/2021 completed Camilla major [facility] 10/28/2022 12:17:31 influenza, injectable, quadrivalent, preservative free 03/13/2015 [facility]/28/2022 12:17:31 Past Encounters Encounter ID Performer Location Encounter Start Date Encounter Closed Date Diagnosis/Indication [id number] Ria Arrieta [address] [address] 04/26/2023 12:46:11 04/26/2023 13:19:00 Prostate specific antigen above reference range [id number] Primo Lucas MD [facility] ry [address] [place] [address] 04/26/2023 12:47:33 04/26/2023 14:15:21 Prostate specific antigen above reference range Health Concerns Section Related Observation LastModified by Organization Detai ls LastModified Time None Recorded Concern Status LastModified by Organization Details LastModified Time None Recorded Payers Encounter Date Sequence Insurance Name Policy Number Policy Verdugo Covered Member ID Verdugo Member ID Guarantor Name 04/26/2023 1 [employer] - DOS ON OR AFTER 19 (MEDICARE REPLACEMENT/ ADVANTAGE - PPO) [id number] 1 Benedict Hernandez [id number] Benedict Hernandez Notes Date Note Type Note Provider Name and Address Organization Details Recorded Time 04/26/2023 text/html HPI Notes: returns to clinic f/u pirads 4 lesion prostate elevated psa 8 Primo Lucas MD [address] [place] [address],[address], [address], [facility] 04/26/2023 13:55:36
--- OUTSIDE RECORDS SUMMARY | 2023-06-20 06:27 | XMS_ITS | Clinical Summary ---
Author Name Unknown Organization [facility] Address [place], [place] [address] Care Team Providers Care Newspaper Reporter Name Role Phone Niko Coyne MD Primary Care Provider [phone] Allergies Active Allergy Reactions Criticality Noted Date Comments Atorvastatin Myalgia 11/11/2020 Medications Medication Sig Dispensed Refills Start Date End Date Status clobetasol cream 0.05% (TEMOVATE) 0.05 % cream 0 10/06/2020 Active hydroCHLOROthiazide (HCTZ) 25 mg tablet Daily 0 10/06/2020 Activ e losartan (COZAAR) 100 mg tablet Take 100 mg by mouth once daily. 0 01/13/2023 Active Xarelto 20 mg tablet Take 20 mg by mouth once daily with a meal. 0 12/07/2022 Active amLODIPine (NORVASC) 5 mg tabletIndications:Esse ntial hypertension Take 1 Tablet (5 mg) by mouth once daily. 90 Tablet 1 01/18/2023 Active metoprolol succinate (TOPROL XL) 50 mg sustained-release tabletIndications:Pers istent atrial fibrillation (HC) Take 1 Tablet (50 mg) by mouth once daily. 90 Tablet 1 03/07/2023 Active Active Problems Problem Noted Date Diagnosed Date Rising PSA level 06/01/2016 Immunizations Name Administration Dates Next Due COVID-19 vaccine (ShepHertzBio NTech 30mcg/0.3mL) JASPAL TORO 07/25/2020,07/04/2020 Influenza Virus, Unspecified 04/12/2019, 03/03/2017,02/17/2016,2014,04/30/2014,01/30/2013,02/09/2011,0 06/09/2010 Influenza, High-dose Inactivated 020,04/12/2019,06/15/2018,2016,02/17/2016 Influenza, IIV3 (Age 6-35 mos) 4,01/30/2013,02/09/2011,2010 Influenza, IIV4 03/13/2015 Pneumococcal Poly,23-Valent (Pneumovax) 06/09/2010 Pneumococcal conj 13-Valent (Prevnar 13) 04/03/2015 Td, Preservative Free (age > = 7 Years) 05/29/2009 Tdap 05/29/2009 Zoster (Zostavax-ZVL, live) 01/30/2013 Social History Tobacco Use Types Packs/Day Years Used Date Smoking Tobacco: Former Smokeless Tobacco: Never Tobacco Cessation:Counseling Given: Yes Alcohol Use Standard Drinks/Week Comments Yes 2 (1 standard drink = 0.6 oz pur e alcohol) Social Connections Answer Date Recorded Frequency of Communication with Friends and Fami ly Not on file 01/17/2023 Sex and Gender Information Value Date Recorded Sex Assigned at Not on file Gender Identity Not on file Sexual Orientation Not on file Obstetrics History Last Filed Vital Signs Vital Sign Reading Time Taken Comments Blood Pressure 123/81 01/17/2023 10:53 AM CDT Pulse 102 01/17/2023 10:53 AM CDT Temperature - - Respiratory Rate 16 06/01/2016 11:16 AM POCKET ASSEMBLER Oxygen Saturation 98% 01/17/2023 10:53 AM CDT Inhaled Oxygen Concentration - - Weight 100.7 kg (222 lb) 01/17/2023 10:53 AM CDT Height - - Body Mass Index - - Plan of Treatment Upcoming Encounters Date Type Department Care Team (Latest Contact Info) Description 06/26/2023 8:30 AM POCKET ASSEMBLER Office Visit [facility] Purnima Luque [address] [place] [address] Dr Bernabe [address] [place] [address] Rajeev Rutledge MD [address] [facility] [address] [place] [address] 07/10/2023 12:15 PM POCKET ASSEMBLER Hospital Encounter [address] [address] Primo uLcas MD [address] [facility] [address] [place] [address] 07/10/2023 12:15 PM POCKET ASSEMBLER - 07/10/2023 3:49 PM POCKET ASSEMBLER Surgery [address] [address] Primo Lucas MD [address] [facility] [address] [place], [place] [id number] DAVINCI ROBOTIC ASSISTED RADICAL PROSTATECTOMY XI, BILATERAL PELVIC LYMPH NODE DISSECTION,LEFT ORCHIECTOMY Scheduled Procedures Name Priority Associated Diagnoses Date/Ti me ROBOTIC PROSTATECTOMY XI CARCINOMA OF PROSTATE 07/10/2023 12:15 PM POCKET ASSEMBLER Health Maintenance Due Date Last Done Comments Depression screening for age 12+ 1957 BMI (ht and wt on same day) for age 18+ 1963 Hepatitis C screening for ag e 18-79 1963 Medicare Wellness for age 65+ 2010 Zoster (shingles) series for age 50+ (2 of 3) 03/27/2013 01/30/2013 Tetanus booster 05/29/2019 05/29/2009, 05/29/2009 COVID-19 vaccine series (24 season) 2023 04/05/2022, 04/22/2021, 07/25/2020, Additional history exists Influenza for age 65+ 01/20/2023 03/23/2020 , 04/12/2019, 04/12/2019, Additional history exists Tdap Completed 05/29/2009 Pneumococcal series for age 65+ Completed 5, 06/09/2010 Care Teams Newspaper Reporter Relationship Specialty Start Date End Date Niko Coyne MD [address] [place] [id number] PCP - General Family Practice 06/01/16
--- OUTSIDE RECORDS SUMMARY | 2023-06-20 06:28 | XMS_ITS | Continuity of Care Document ---
Author Name Unknown Address [address] [place] [address] Phone [phone] Organization [facility], [facility] Address [address] [facility] [address] [place] [address] Care Team Providers Care Section Crews Activities Clerk Name Role Phone BENJAMÍN SHERMAN Primary Care Provider [phone] Assessment No assessment recorded. Plan of Treatment [...] available LAB BLOOD DRAW 2023 09:50A M [facility] Not available Not available Not available ESTABL ISHED 10 2023 08:40A M Primo Lucas MD Not available Not available Not available Lab None record ed. Referral None record ed. Procedures None record ed. Surgeries None record ed. Imaging None record ed. Medication Orders ceftri axone 1 gram soluti on for inject ion 2022 023 [email or web address] [facility] [address], [address] [place] [address], [address], 05/09/2023 16:25:57 Patient TargetsNo targets recorded. Patient InstructionsNo instructions recorded. Reason for Referral None Reported. Results Created Date Observation Date Name Description Value Unit Range Abnormal Flag LastModifiedBy Organization Detail LastModifiedTime 04/27/20 23 04/26/2023 US, prost ate No observ ation record ed. [email or web address] Not Available 05/09/2023 16:48:14 05/25/19 24 05/25/2023 US, duple x, scrot um, compl ete No observ ation record ed. [facility]iology [address] [place], [address], 05/26/2023 09:44:19 Result Notes None recorded. Problems Name Status Onset Date Resolution Date Notes Provider Name and Address Organization Details Recorded Time Essential hypertension Active 02/08/20 23 Camilla major [facility] 02/07/2023 17:06:43 Prostate specific antigen above reference range Active 04/26/20 23 Camilla major [facility] 04/26/2023 13:05:55 Problem Notes None recorded. Procedures Surgical History Date Name Laterality Status Provider Name and Address Organization Details Recorded Time 3 Prostate Biopsy Procedure completed Primo Lucas MD [address] [place] [address],[address], [address], [facility] 04/26/2023 13:55:17 3 URONAV completed Primo Lucas MD [address] [place] [address],[address], [address], [facility] 04/26/2023 13:55:10 3 Rocephin/Ceftr iaxone completed Ria major [facility] 04/26/2023 12:49:06 3 Blood Draw/PUBLIC HEALTH DIETITIAN/PSA RESULTS completed Ria major [facility] 04/26/2023 12:49:09 3 Prostate Biopsy Procedure cancelled Camilla major [facility] 02/07/2023 17:06:20 3 URONAV cancelled Camilla major [facility] 02/07/2023 17:06:20 3 Rocephin/Ceftr iaxone cancelled Dennis major [facility] 02/08/2023 13:41:54 3 Blood Draw/PUBLIC HEALTH DIETITIAN/PSA RESULTS cancelled Dennis major [facility] 02/08/2023 13:41:38 Imaging Results None recorded. Procedure [...] Updated DateTime 04/26/2023 182.88 cm 28.5 kg/m2 30717.4 g Camilla Yoshi major [facility] 04/26/2023 13:05:44 Social History Question Answer Notes LastModified by Organizat ion Details LastModified Time Tobacco Smoking Status Never Smoker Camilla Yoshi major [facility] 10/28/2022 12:21:11 What Is Your Level Of Alcohol Consumption? Moderate [email or web address] Information not available 10/28/2022 What Is Your Level Of Caffeine Consumption? Occasional [email or web address] Information not available 10/28/2022 What Was The Date Of Your Most Recent Tobacco Screening? 05/09/2023 [email or web address] Information not available 05/09/2023 Have You Ever Been Counseled For Unhealthy Alcohol Use? No [email or web address] Information not available 02/07/2023 Do You Use Any Illicit Or Recreational Drugs? No [email or web address] Information not available 10/28/2022 Has Tobacco Cessation Counseling Been Provided? No [email or web address] Information not available 10/28/2022 Do You Or Have You Ever Used Any Other Forms Of Tobacco Or Nicotine? No [email or web address] Information not available 10/28/2022 How Many Days In The Past Year Have You Consumed 5 Or More Drinks? 0 [email or web address] Information no t available 02/07/2023 Sex: Male Functional Status None recorded. Mental Status None recorded. Family History Nothing Reported. Medical History Condition Response Sexually Transmitted Infection N Diabetes N Other N Bleeding Disorder N High Blood Pressure Y Kidney Stones N High Cholesterol N GERD/Acid Reflux N Heart Disease N Cancer N Depression N Lung Disease N Immunizations Vaccine Type Date Status Provider Name and Address Organization Details Recorded Time influenza, high-dose, quadrivalent 04/09/2021 completed Camilla major [facility] 10/28/2022 12:17:30 Influenza vaccine, quadrivalent, adjuvanted 04/05/2022 filemon major [facility] 10/28/2022 12:17:30 COVID-19, mRNA, LNP-S, PF, 30 mcg/0.3 mL dose 07/04/2020 filemon major [facility] 10/28/2022 12:17:30 COVID-19, mRNA, LNP-S, PF, 30 mcg/0.3 mL dose 07/25/2020 completed Camilla major, [facility] 10/28/2022 12:17:30 COVID-19, mRNA, LNP-S, PF, 30 mcg/0.3 mL dose 04/22/2021 [facility] 12:17:30 COVID-19, mRNA, LNP-S, bivalent, PF, 30 mcg/0.3 mL dose 04/05/2022 [facility]/28[facility] 12:17:30 pneumococcal polysaccharide PPV23 06/09/2010 [facility]/28/2022 12:17:30 Tdap 05/29/2009 [facility]/28/2022 12:17:30 Pneumococcal conjugate PCV 13 04/03/2015 [facility]/28/2022 12:17:30 zoster live 01/30/2013 [facility]/28/2022 12:17:30 Influenza, high dose seasonal 06/15/2018 [facility]/28/2022 12:17:30 Influenza, high dose seasonal 02/17/2016 [facility]/28[facility]2022 12:17:30 Influenza, high dose seasonal 03/03/2017 [facility]/28/2022 12:17:30 Influenza, high dose seasonal 03/23/2020 [facility]/28/2022 12:17:30 Influenza, high dose seasonal 04/12/2019 [facility]/28[facility]2022 12:17:30 Influenza, seasonal, injectable, preservative free 06/09/2010 [facility]/28[facility]22 12:17:30 Influenza, seasonal, injectable, preservative free 01/30/2013 [facility]/28[facility] 12:17:31 Influenza, seasonal, injectable, preservative free 02/09/2011 completed Camilla major [facility] 10/28/2022 12:17:31 Influenza, seasonal, injectable, preservative free 04/30/2014 [facility]/28[facility] 12:17:31 Td (adult), 2 Lf tetanus toxoid, preservative free, adsorbed 10/14/2021 completed Camilla major [facility] 10/28/2022 12:17:31 influenza, injectable, quadrivalent, preservative free 03/13/2015 completed Camilla major [facility] 10/28/2022 12:17:31 Past Encounters Encounter ID Performer Location Encounter Start Date Encounter Closed Date Diagnosis/Indication [id number] Ria Arrieta [address] [address] 04/26/2023 12:46:11 04/26/2023 13:19:00 Prostate specific antigen above reference range [id number] Primo Lucas MD [address] [address] 04/26/2023 12:47:33 04/26/2023 14:15:21 Prostate specific antigen [...] AFTER 19 (MEDICARE REPLACEMENT/ ADVANTAGE - PPO) [id number] 1 Benedict Hernandez [id number] Benedict Hernandez Notes Date Note Type Note Provider Name and Address Organization Details Recorded Time 04/26/2023 text/html HPI Notes: returns to clinic f/u pirads 4 lesion prostate elevated psa 8 Primo Lucas MD [address] [place] [address], [phone], [facility] 04/26/2023 13:55:36
--- NOTE | 2023-06-20 07:48 | P.ANES_ITS ---
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
--- NOTE | 2023-06-20 08:11 | W.ANESCHARGE ---
Anesthesia Charges Start Date/Time Anesthesia Start Date: 06/20/23 Anesthesia Start Time: 07:17 Stop Date/Time Anesthesia Stop Date: 06/20/23 Anesthesia Stop Time: 07:39 Summary Extremes of Age - Over 70 or under 1: MDA
== END 2023-06-20 06:26 | disposition home or self-care (01) ==
LOC: OP CLINIC 06:25
PROVIDERS: PCP Physician Assistant Medical; Visit Provider Surgery
DX: R13.10 Dysphagia, unspecified (principal); K44.9 Diaphragmatic hernia without obstruction or gangrene; K22.2 Esophageal obstruction
CPT/HCPCS: 00731; 43249; 88305; 99100; J2704

== ENCOUNTER 2024-02-07 13:43 | Outpatient (REF) | payer MEDICARE, SELFPAY ==
--- OUTSIDE RECORDS SUMMARY | 2024-02-07 13:46 | XMS_ITS | Clinical Summary ---
Author Organization [facility] Address [place], [place] [address] Care Team Providers Care Region Manager Name Role Phone Niko Coyne MD Primary Care Provider [phone] Allergies Active Allergy Reactions Criticality Noted Date Comments Atorvastatin Myalgia 11/11/2020 Medications Medication Sig Dispensed Refills Start Date End Date Status clobetasol cream 0.05% (TEMOVATE) 0.05 % cream 10/06/2020 Active metoprolol succinate (TOPROL XL) 50 mg sustained-release tabletIndications:Pe rsistent atrial fibrillation (HC) Per pt taking 100 mg daily. 06/26/23--Plan for follow up in 03/2024. Call in 12/2023 to schedule. Further refills to be provided after next visit. 180 Tablet 2 06/26/2023 Active Xarelto 20 mg tabletIndications:Pe rsistent atrial fibrillation (HC),Essential hypertension Take 1 Tablet (20 mg) by mouth once daily with a meal. Plan for follow up in 03/2024. Call in 12/2023 to schedule. Further refills to be provided after next visit. 07/24/2023 Active docusate (COLACE) 100 mg capsuleIndications:C onstipation, unspecified constipation type Take 1 Capsule (100 mg) by mouth 2 times daily if needed for Constipation. 14 Capsule 07/11/2023 Active bacitracin ointmentIndications: Prostate cancer (HC) Apply topically to affected area(s) 2 times daily if needed (apply to penis for catheter associated discomfort). 14 g 07/11/2023 Active hydroCHLOROthiazide 25 mg tabletIndications:Es sential hypertension Take 1 Tablet (25 mg) by mouth once daily. Plan for follow up in 03/2024. Call in 12/2023 to schedule. Further refills to be provided after next visit. 90 Tablet 01/02/2024 Active amLODIPine (NORVASC) 5 mg tabletIndications:Es sential hypertension Take 1 Tablet (5 mg) by mouth once daily. Plan for follow up in 03/2024. Call in 12/2023 to schedule. Further refills to be provided after next visit. 90 Tablet 01/02/2024 Active losartan (COZAAR) 100 mg tabletIndications:Es sential hypertension,Persist ent atrial fibrillation (HC) Take 1 Tablet (100 mg) by mouth once daily. Plan for follow up in 03/2024. Call in 12/2023 to schedule. Further refills to be provided after next visit. 90 Tablet 01/02/2024 Active Active Problems Problem Noted Date Diagnosed Date Prostate cancer 07/10/2023 Atrial fibrillation 07/10/2023 Rising PSA level 06/01/2016 Essential hypertension 07/01/2009 Hyperlipidemia 07/01/2009 Encounters Date Type Department Care Team Description 01/02/[address] [place] [address] Rajeev Rutledge MD Refill Request from Last 3 Months Immunizations Name Administration Dates Next Due COVID-19 vaccine ([employer] NTech 30mcg/0.3mL) JASPAL TORO 07/25/2020,07/04/2020 Influenza Virus, [...] Sign Reading Time Taken Comments Blood Pressure 118/76 07/11/2023 8:40 AM APPLIANCE INSTALLER Pulse 88 07/11/2023 10:00 AM APPLIANCE INSTALLER Temperature 36.6 ??C (97.9 ??F) 07/11/2023 8:30 AM CS T Respiratory Rate 18 07/11/2023 8:30 AM APPLIANCE INSTALLER Oxygen Saturation 95% 07/11/2023 10:00 AM APPLIANCE INSTALLER Inhaled Oxygen Concentration - - Weight 102.1 kg (225 lb) 07/11/2023 6:26 AM APPLIANCE INSTALLER Height 182.9 cm (6') 07/10/2023 2:08 PM APPLIANCE INSTALLER Body Mass Index 30.52 07/10/2023 2:08 PM APPLIANCE INSTALLER Plan of Treatment Health Maintenance Due Date Last Done Comments Depression screening for age 12+ 1957 Hepatitis C screening for ag e 18-79 1963 RSV vaccine for adults or (1 - 1-dose 60+ series) 2005 Medicare Wellness for age 65+ 2010 Zoster (shingles) series for age 50+ (2 of 3) 03/27/2013 01/30/2013 Tetanus booster 05/29/2019 05/29/2009, 05/29/2009 COVID-19 vaccine series (2022- season) 2024 04/05/2022, 04/22/2021, 07/25/2020, Additional history exists Influenza for age 65+ 01/21/2024 03/23/2020 , 04/12/2019, 04/12/2019, Additional history exists BMI (ht and wt on same day) for age 18+ 06/26/2024 06/26/2023 Tdap Completed 05/29/2009 Pneumococcal series for age 65+ Completed 5, 06/09/2010 Advance Directives * Full Code (Latest Code Status on File) Date Activated Date Inactivated Comments 07/10/2023 2:04 PM 07/11/2023 2:03 PM Question Answer Comments Code Status Discussion: Reviewed Preferences * Full Code Date Activated Date Inactivated Comments 07/10/2023 7:39 AM 07/10/2023 2:04 PM Question Answer Comments Code Status Discussion: Unable to Assess Preferences, Provider to review later Care Teams Region Manager Relationship Specialty Start Date End Date Niko Coyne MD [address] [place] [id number] PCP - General Family Practice 06/01/16
--- OUTSIDE RECORDS SUMMARY | 2024-02-07 13:46 | XMS_ITS | Continuity of Care Document ---
Author Organization [facility] , [facility] Address [address] [place] [id number] Care Team Providers Care Marketing Development Specialist Name Role Phone BENJAMÍN SHERMAN Primary Care Provider [phone] Assessment No assessment recorded. Plan of Treatment Reminders Order Date Submit Date Provider Last Modified By Organization Details Last Modified Time Details Appointments None recorded . Lab PSA, total, serum or plasma 024 11/20/[address] [facility], [address] [place], [address], 4 09:21:13 PSA, total, serum or plasma 024 02/20/[address] [facility], [address] [place], [address], 4 09:21:13 Referral None recorded . Procedures None recorded . Surgeries None recorded . Imaging None recorded . Medication Orders None recorded . Patient TargetsNo targets recorded. Patient InstructionsNo instructions recorded. Reason for Referral Cancer Support Services for Malignant tumor of prostate Referring Physician: Mary Osborne, Urology, Encounter Date: 07/24/2023 Problems Name Problem SNOMED Code Status Onset Date Resolution Date Notes Provider Name and Address Organization Details Recorded Time Essential hypertension 32137239 Active 2022 LESTER Hui [facility] 3 17:06:43 Prostate specific antigen above reference range 147698677 Active 2022 LESTER Hui [facility] 3 13:05:55 Problem Notes None recorded. Procedures Surgical History Date Name Laterality Status Provider Name and Address Organization Details Recorded Time 11/01/19 24 Blood Draw/ELECTRIC ORGAN ASSEMBLER AND CHECKER/PSA RESULTS completed Salud Brantley [facility] 11/01/2023 10:39:35 07/17/19 24 Fill and Pull/Voiding Trial/TOV completed Miriam Franklin [facility] 07/17/2023 09:44:18 04/26/20 23 Prostate Biopsy Procedure completed Primo Lucas MD [address] [place] [address], [address] [place] [address] 04/26/2023 13:55:17 04/26/20 23 URONAV completed Primo Lucas MD [address] [place] [address], [address] [place] [address], [facility] 04/26/2023 13:55:10 04/26/20 23 [facility] 12:49:06 04/26/20 23 Blood Draw/ELECTRIC ORGAN ASSEMBLER AND CHECKER/[facility]ULTS [facility] 12:49:09 02/09/20 23 Prostate Biopsy Procedure cancelled Camilla Belle [facility] 02/07/2023 17:06:20 02/09/20 23 URONAV cancelled Camilla Belle [facility] 02/07/2023 17:06:20 02/09/20 23 Rocephin/Ceftri axone cancelled Dennis Lund [facility] 02/08/2023 13:41:54 02/09/20 23 Blood Draw/ELECTRIC ORGAN ASSEMBLER AND CHECKER/PSA RESULTS cancelled Dennis Lund [facility] 02/08/2023 13:41:38 10/13/19 19 Colonoscopy completed Charbel Aguirre [facility] 09/28/2023 09:23:59 Imaging Results None recorded. Procedure Notes None recorded. Medical Equipment None Reported. Allergies No known drug allergies Medications Name Sig Start Date Stop Date Status Note LastModified by Organization Details LastModified Time metoprolol succinate ER 50 mg tablet,exte nded release 24 hr active Not Available Not Available Not Available hydrocodone 5 mg-acetamin ophen 325 mg tablet 11/19 completed Not Available Not Available Not Available amlodipine 5 mg tablet active Not Available Not Available Not Available ceftriaxone 1 gram solution for injection Take 1 g by injection route. 05/09 completed Not Available Not Available Not Available amlodipine 10 mg tablet 05/09 completed Not Available Not Available Not Available cephalexin 500 mg capsule Take 1 capsule every 8 hours by oral route. 09/27 completed Not Available Not Available Not Available [...] Not Available Vitals Date Recorded Body height Provider Name an d Address Organization Details Last Updated DateTime 11/20/2023 182.88 cm Juancarlos Whipple [facility] 15:40:42 Social History Question Answer Notes LastModified by Organizat ion Details LastModified Time Tobacco Smoking Status Never Smoker Camilla major, [facility] 10/28/2022 12:21:11 What Is Your Level Of Alcohol Consumption? Occasional [email or web address] Information not available 07/24/2023 What Is Your Level Of Caffeine Consumption? Occasional [email or web address] Information not available 10/28/2022 What Was The Date Of Your Most Recent Tobacco Screening? 11/20/2023 Information not available 11/20/2023 Have You Ever Been Counseled For Unhealthy Alcohol Use? No [email or web address] Information not available 02/07/2023 Do You Use Any Illicit Or Recreational Drugs? No Information not available 11/20/2023 Has Tobacco Cessation Counseling Been Provided? No Information not available 10/28/2022 Do You Or Have You Ever Used Any Other Forms Of Tobacco Or Nicotine? No Information not available 10/28/2022 How Many Days In The Past Year Have You Consumed 5 Or More Drinks? 0 [email or web address] Information no t available 02/07/2023 Sex: Unknown Functional Status None recorded. Mental Status None recorded. Family History Nothing Reported. Medical History Condition Response Diabetes N Sexually Transmitted Infection N Other N Bleeding Disorder N High Blood Pressure Y Kidney Stones N High Cholesterol N GERD/Acid Reflux N Heart Disease N Cancer N Lung Disease N Depression N Immunizations Vaccine Type Date Status Provider Name and Address Organization Details Recorded Time Influenza, adjuvanted, quadrivalent, PF [facility] 11:57:08 COVID-19, mRNA, LNP-S, PF, 50 mcg/0.5 mL 05/24/2023 [facility] 11:57:08 Influenza, high-dose, quadrivalent, PF 04/09/2021 [facility]22 12:17:30 Influenza, adjuvanted, quadrivalent, PF 04/05/2022 [facility]22 12:17:30 COVID-19, mRNA, LNP-S, PF, 30 mcg/0.3 mL dose 07/04/2020 [facility]22 12:17:30 COVID-19, mRNA, LNP-S, PF, 30 mcg/0.3 mL dose 07/25/2020 [facility]22 12:17:30 COVID-19, mRNA, LNP-S, PF, 30 mcg/0.3 mL dose 04/22/2021 [facility] 12:17:30 COVID-19, mRNA, LNP-S, bivalent, PF, 30 mcg/0.3 mL dose 04/05/2022 completed Camilla major [facility] 10/28/2022 12:17:30 pneumococcal polysaccharide PPV23 06/09/2010 completed Camilla major, [facility] 10/28/2022 12:17:30 Tdap 05/29/2009 completed Camilla major, [facility] 10/28/2022 12:17:30 Pneumococcal conjugate PCV 13 04/03/2015 completed Camilla major, [facility] 10/28/2022 12:17:30 zoster live 01/30/2013 completed Camilla major, [facility] 10/28/2022 12:17:30 Influenza, high-dose, trivalent, PF 06/15/2018 completed Camilla major, [facility] 10/28/2022 12:17:30 Influenza, high-dose, trivalent, PF 02/17/2016 completed Camilla major, [facility] 10/28/2022 12:17:30 Influenza, high-dose, trivalent, PF 03/03/2017 completed Camilla major, [facility] 10/28/2022 12:17:30 Influenza, high-dose, trivalent, PF 03/23/2020 completed Camilla major, [facility] 10/28/2022 12:17:30 Influenza, high-dose, trivalent, PF 04/12/2019 completed Camilla major, [facility] 10/28/2022 12:17:30 Influenza, split virus, trivalent, PF 06/09/2010 completed Camilla major, [facility] 10/28/2022 12:17:30 Influenza, split virus, trivalent, PF 01/30/2013 completed Camilla major, [facility] 10/28/2022 12:17:31 Influenza, split virus, trivalent, PF 02/09/2011 completed Camilla major, [facility] 10/28/2022 12:17:31 Influenza, split virus, trivalent, PF 04/30/2014 completed Camilla major, [facility] 10/28/2022 12:17:31 Td (adult), 2 Lf tetanus toxoid, preservative free, adsorbed 10/14/2021 completed Camilla major [facility] 10/28/2022 12:17:31 Influenza, split virus, quadrivalent, PF 03/13/2015 completed Camilla major [facility] 10/28/2022 12:17:31 Past Encounters Encounter ID Performer Location Encounter Start Date Encounter Closed Date Diagnosis/Indication Diagnosis SNOMED-CT Code Diagnosis ICD10 Code [id number] Salud Brantley [facility] [address] [place] [address],[address] [place] [address] 11/01/2023 10:38:50 11/01/2023 10:40:18 Malignant tumor of prostate [id number] C61 [id number] MD [facility] [address] [place] [address],[facility] [address] [place] [address] 11/20/2023 15:33:44 11/21/2023 10:07:14 History of malignant neoplasm of prostate 377067307 Z85.46 Adult hydrocele 11333319 11 9105 N43.3 Health Concerns Section Related Observation LastModified by Organization Detai ls LastModified Time None Recorded Concern Status LastModified by Organization Details LastModified Time None Recorded Payers Encounter Date Sequence Insurance Name Policy Number Policy Verdugo Covered Member ID Verdugo Member ID Guarantor Name 11/20/2023 1 [employer] - DOS ON OR AFTER 19 (MEDICARE REPLACEMENT/ ADVANTAGE - PPO) [id number] Benedict Hernandez [id number] Benedict Hernandez Notes Date Note Type Note Provider Name and Address Organization Details Recorded Time 11/20/2023 text/html HPI Notes: davrp jun 2023. His PSA is undetectable. T3 G9 margin negative N0 disease. Continuing to follow protocol. small dribble. wears a small pad. good control at rest and at night. doing well after hydrocele. Primo Lucas MD [address] [facility],[address], [place], [address], [facility] 11/20/2023 19:44:02
[2024-02-07 14:48] LABS: PSA Diagnostic* < 0.06 ng/mL (0.10-4.00)
== END 2024-02-07 13:44 | disposition home or self-care (01) ==
LOC: NPINS 13:43
PROVIDERS: PCP Physician Assistant Medical; Visit Provider Urology
DX: Z85.46 Personal history of malignant neoplasm of prostate (principal)
CPT/HCPCS: 84153

== ENCOUNTER 2024-05-27 12:24 | Outpatient (CLI) | payer MEDICARE, SELFPAY | END 2024-05-27 12:25 | disposition home or self-care (01) | PROVIDERS: PCP Physician Assistant Medical; Visit Provider Physician Assistant Medical | DX: E78.2 Mixed hyperlipidemia (principal); I10 Essential (primary) hypertension; Z12.5 Encounter for screening for malignant neoplasm of prostate | CPT/HCPCS: 80053; 80061; G0103 ==

== ENCOUNTER 2024-08-28 08:02 | Outpatient (CLI) | payer MEDICARE, SELFPAY ==
[2024-08-28 15:21] LABS: PSA Screen* < 0.06 ng/mL (0.10-4.00)
== END 2024-08-28 08:03 | disposition home or self-care (01) ==
LOC: NPINS 08:03
PROVIDERS: PCP Physician Assistant Medical; Visit Provider Urology
DX: Z12.5 Encounter for screening for malignant neoplasm of prostate (principal); Z85.46 Personal history of malignant neoplasm of prostate
CPT/HCPCS: G0103

== ENCOUNTER 2025-02-03 07:44 | Outpatient (CLI) | payer MEDICARE, SELFPAY | END 2025-02-03 07:45 | disposition home or self-care (01) | LOC: RAD 07:45 | PROVIDERS: PCP Physician Assistant Medical; Visit Provider Internal Medicine | DX: I48.19 Other persistent atrial fibrillation (principal); I36.1 Nonrheumatic tricuspid (valve) insufficiency; I34.0 Nonrheumatic mitral (valve) insufficiency; I35.1 Nonrheumatic aortic (valve) insufficiency | CPT/HCPCS: 93306 ==

== ENCOUNTER 2025-03-18 07:57 | Outpatient (CLI) | payer MEDICARE, SELFPAY ==
[2025-03-20 20:19] LABS: Prostate Specific AntigenTotal <0.1 ng/mL (0.0-4.0)
== END 2025-03-18 07:58 | disposition home or self-care (01) ==
LOC: NPINS 07:57
PROVIDERS: PCP Physician Assistant Medical; Visit Provider Urology
DX: Z85.46 Personal history of malignant neoplasm of prostate (principal)
CPT/HCPCS: 84153; 84154